=== PATIENT | female | born 1955 | race Caucasian/White ===

== ENCOUNTER 2025-02-26 09:36 | Outpatient (CLI) | payer OTHER ==
[~2025-02-26 09:36] MED LIST: COZAAR50 MG PO; GABAPENTIN600 MG PO; INTEGRA PLUS C1 EACH PO; OXYC1TAB9 PO; PROTONIX20 MG PO; XARELTO10 MG PO; ZANTAC 7575 MG PO
== END 2025-02-26 09:40 | disposition home or self-care (01) ==
LOC: SONOGRAMA 09:36
PROVIDERS: ATTEND Pathology Anatomic Pathology
DX: D34 Benign neoplasm of thyroid gland (principal); E07.89 Other specified disorders of thyroid; E04.1 Nontoxic single thyroid nodule